=== PATIENT | female | born 1990 | race Caucasian/White ===

== ENCOUNTER 2016-12-15 11:11 | Inpatient (IN) | payer OTHER ==
[~2016-12-15] VITALS: Ht 167.6 cm; Wt 49.9 kg
--- NOTE | 2016-12-15 12:45 | NUR ---
Pre-admission: Patient is seen at the intake office at this time. Alert and oriented x 4. Verbally responsive. Appears disheveled and anxious. VS 98.1, Pulse 86, RR 20, O2 sat at RA 97%, BP 119/78, PL 0/10. Patient presented with tremors, complains of nausea, anxiety and noted with facial flushing. CIWA 17. States that she is here to detox from ETOH. Denies any seizure history and denies any allergies. No signs of ETOH intoxication noted. Per patient, she came from [facility] ER from an overnight stay due to ETOH poisoning. Will continue with the admission process in the unit.
[2016-12-15] MEDS ORDERED: TRAZ-147 PO (12:50)
[2016-12-15] MEDS ORDERED: CLIN-63 PO (12:51)
[2016-12-15 13:00] VITALS: BP 119/78
--- NOTE | 2016-12-15 13:00 | NUR ---
Admission Note: The patient is a 26 year old female who returns to [facility] for medically supervised withdrawal from alcohol. She is alert and oriented x 4. No changes in LOC noted. Denies S/I or H/I noted. Respirations even and unlabored. No SOB noted. Skin warm and dry to touch. Skin check done and noted with a bruiser on her right cheek and a skin abrasion measuring 1cm x 1 cm sustained from a fall due to ETOH intoxication. Abdomen soft and non-distended with BS (+) in all 4 quadrants. No complains of diarrhea or constipation noted. LBM was today. Patient does not recall when her LMP, since she reports having an IUD inserted. Able to provide urine for UDS and test. Ambulatory ad khadijah with steady gait. Voids independently The patient states that she was recently hospitalized at [facility] from 12/14/2016 to 12/15/2016 for acute alcohol poisoning. The patient reports relapsing a week ago and would drink 1L of Vodka daily for 7 days. The patient reports first drinking alcohol at age 13, but does not identify abusing alcohol on a consistent basis until age 17. She denies any history of withdrawal seizures. Her longest period of sobriety was 1.5 years that ended in September 2014. At the time of assessment, patient appears anxious, restless, complains of nausea with no vomiting and tremors to bilateral hands. She reports having a PCP named Dr. Rodríguez, and with a family history of alcoholism and cocaine abuse. Educated patient on the unit's protocol and policies. Patient verbalized understanding. Will continue to monitor closely.
[2016-12-15] MEDS ORDERED: MAGNESIUM HYDROXIDE 30 ML LIQUID UDC PO PRN (13:15)
[2016-12-15] MEDS ORDERED: DICYCLOMINE HCL 20 MG TABLET PO PRN (13:15)
[2016-12-15] MEDS ORDERED: ACETAMINOPHEN 325 MG TABLET PO PRN (13:15)
[2016-12-15] MEDS ORDERED: diphenhydrAMINE 50 MG CAPSULE PO PRN (13:15)
[2016-12-15] MEDS ORDERED: MAG HYDROX/AL HYDROX/SIMETH 30 ML LIQUID UDC PO PRN (13:15)
[2016-12-15] MEDS ORDERED: ONDANSETRON 4 MG/2 ML VIAL IM PRN (13:15)
[2016-12-15] MEDS ORDERED: MIRALAX 17 GM POWD.PACK PO PRN (13:15)
[2016-12-15] MEDS ORDERED: LORAZEPAM 2 MG/1 ML VIAL IM PRN (13:15)
[2016-12-15] MEDS ORDERED: THIAMINE HCL 200 MG/2 ML VIAL IM ONE (13:15)
[2016-12-15] MEDS ORDERED: LOPERAMIDE HCL 2 MG CAPSULE PO PRN ×2 (13:15)
[2016-12-15] MEDS ORDERED: LORAZEPAM 1 MG TABLET PO PRN ×2 (13:15)
[2016-12-15 13:40] LABS: *AMPHETAMINE, URINE NEGATIVE (NEGATIVE); *BARBITURATE, URINE NEGATIVE (NEGATIVE); *CANNABINOID, URINE NEGATIVE (NEGATIVE); *COCCAINE, URINE NEGATIVE (NEGATIVE); *OPIATE, URINE NEGATIVE (NEGATIVE); *PHENCYCLIDINE SCREEN,URINE NEGATIVE (NEGATIVE)
[2016-12-15 13:54] LABS: *URINE HCG, QUAL NEGATIVE (NEGATIVE)
[2016-12-15] MEDS: LORAZEPAM 1 MG TABLET PO SCH ×3 (14:06→20:50)
[2016-12-15] MEDS: ONDANSETRON ODT 4 MG TAB.RAPDIS SL PRN ×2 (14:06→20:50)
[2016-12-15] MEDS: CLONIDINE HCL 0.1 MG TABLET PO PRN (14:06)
--- NOTE | 2016-12-15 14:06 | NUR ---
Zofran 4mg ODT and Clonidine 0.1mg PO given: Patient noted with CIWA 17, intermittent nausea noted with gross tremors, facial flushing, anxiety, agitation and sweats. Initial dose of Ativan taper started at this time. Clonidine 0.1mg PO given and Zofran 4 mg ODT given as ordered. Will monitor for effectiveness. Results of urine results are negative.
--- NOTE | 2016-12-15 14:10 | NUR ---
Vitamin B1 IM not administered: Patient refused Thiamine injection. Education provided but still refused. Will continue to monitor closely.
[2016-12-15 15:03] LABS: BASOPHILS # (AUTO) 0.1 K/uL (0.0-8.0); BASOPHILS % (AUTO) 0.6 % (0.0-2.0); EOSINOPHILS % (AUTO) 0.4 % (0.0-7.0); HEMATOCRIT 34.7 % (37-47); HEMOGLOBIN 11.9 G/DL (12.0-16.0); LYMPHOCYTES # (AUTO) 1.4 K/UL (0.8-4.8); LYMPHOCYTES % (AUTO) 16.3 % (20.5-51.5); MEAN CORPUSCULAR HEMOGLOBIN 30.1 UUG (27.0-31.0); MEAN CORPUSCULAR HGB CONC 34 g/dL (32.0-37.0); MEAN CORPUSCULAR VOLUME 87.7 FL (81.0-99.0); MONOCYTES # (AUTO) 0.6 K/UL (0.1-1.30); MONOCYTES % (AUTO) 6.7 % (0.0-11.0); NEUTROPHILS # (AUTO) 6.3 K/UL (1.8-8.9); PLATELET COUNT (AUTO) 349 K/UL (150-450); RED BLOOD CELL COUNT(AUTO) 3.96 MIL/UL (4.2-5.4); WHITE BLOOD COUNT (AUTO) 8.4 K/UL (4.0-11.2)
--- NOTE | 2016-12-15 15:06 | NUR ---
Re-assessment: Per patient, PRN Zofran was effective in reducing nausea.
[2016-12-15 15:35] LABS: BILIRUBIN,TOTAL 0.9 mg/dL (0.2-1.0); CREATININE 0.6 mg/dL (0.6-1.3); MAGNESIUM 1.5 mg/dL (1.8-2.4); POTASSIUM 4.2 mmol/L (3.5-5.1); TOTAL PROTEIN, SERUM 6.7 g/dL (6.4-8.2)
[2016-12-15 16:00] VITALS: BP 108/66
[2016-12-15] MEDS ORDERED: MAGNESIUM OXIDE 400 MG TABLET PO ONE (16:00)
--- NOTE | 2016-12-15 16:00 | NUR ---
Communication: Notified MD Paniagua that patient's Mag level is 1.7L. New orders were entered. Orders noted and carried out. Addendum: 12/15/16 at 1604 by BRITTON OCHOA LVN Correction: Mag level 1.5L.
[2016-12-15 16:18] LABS: THYROID STIMULATING HORMONE 1.668 mIU/mL (0.358-3.740)
--- NOTE | 2016-12-15 18:42 | NUR ---
End of Shift Notes: Patient Is a 26 year old female admitted for ETOH dependence who was placed on a 5-day Ativan taper as ordered which was started today. Has past medical hx of insomnia, PTSD, depression, and alcoholic hepatitis. VS monitored closely. No significant abnormalities noted. Withdrawal symptoms were closely monitored. Initial CIWA upon admission 17 patient presented with anxiety, agitation, nausea, tremors, sweating and facial flushing. Last CIWA 8. Per patient, Ativan has been helping her with her withdrawal symptoms. Patient was medicated with Clonidine and Zofran 4 mg ODT at 1406 with help after 1 hour. Mag 1.5L replaced with 800mg of Mag Oxide as ordered. Patient was unable to participate in group and social activities due to her withdrawal symptoms. Appetite fair. All needs met and attended. Dinner 0%, intake 500cc, void x 2, no BM. Will continue to monitor closely.
--- NOTE | 2016-12-15 19:15 | NUR ---
Start of Shift Note: Patient is a 26 y/o female admitted today 12/15/16 for ETOH dependence. Patient reported drinking 1 liter of Vodka daily for 1 week. Patient has PTSD, Hx of Alcoholic hepatitis, Mood disorder and Insomnia. Patient is on a regular diet with no known food and drug allergies. Full Code status. Fall and Seizure precaution. Patient has bruise on her right cheek. No open skin noted. Magnesium 1.5 was replaced with Mag Ox 800mg during day shift. Patient started today on a modified 5-day Ativan taper. Last CIWA 8. PRN Clonidine and Zofran given. Patient is alert & oriented to name, place and situation. No shortness of breath noted. Respiration even & unlabored. Abdomen soft & non-distended. Nausea with no episode of vomiting noted. Slight sweating noted. No complains of pain/discomfort. Patient denies hallucination. Safety precautions are in place. Bed locked in lowest position. Both side rails up. Call light within pts reach. Will continue to monitor patient.
[2016-12-15 20:00] VITALS: BP 123/75
--- NOTE | 2016-12-15 20:50 | NUR ---
PRN Zofran Patient complains of nausea. No episode of vomiting noted during my shift. PRN Zofran 4mg SL administered as ordered. Will reassess in 1 hour. Will continue to monitor patient.
--- NOTE | 2016-12-15 21:50 | NUR ---
PRN Reassessment Patient verbalized improved nausea. Will continue to monitor patient.
[2016-12-16] VITALS: BP 119/79
[2016-12-16 04:00] VITALS: BP 110/69
--- NOTE | 2016-12-16 07:17 | NUR ---
End of Shift Note: Endorse pt to day shift nurse. Pt continues on his Ativan taper and tolerating well. Patient has been in his room most of my shift. Patient is compliant with medications, treatment and plan of care. Pt reported taper medications is effective in controlling her withdrawal symptoms. Last CIWA is 6. Pt was given PRN Zofran for nausea and was effective 1 hour post administration. Pt remained stable and vitals remains WNL. Pt slept for a total of 7 hours. Pt consumed 1000 ml of fluid. Encourage pt to increase fluid intake. Voided 3x with no bowel movement. All needs attended & met. Safety precautions are in place. Will continue to monitor patient.
--- NOTE | 2016-12-16 07:18 | NUR ---
Start of Shift Notes: Received patient in her room. Alert and oriented x 4. Able to make needs known. Respirations even and unlabored. No SOB noted. Skin warm and dry to touch. Abdomen soft and non-distended with (+) BS in all 4 quadrants. No complains of N/V/D or constipation noted. No complains of abdominal discomfort noted. Voids independently. Ambulatory ad khadijah with steady gait. Patient is a 26 year old female admitted for ETOH dependence who was placed on a 5-day Ativan taper as ordered. No adverse reactions noted. Has past medical hx of PTSD, insomnia and alcoholic hepatitis. Educated patient on her current plan of care for the day and her medication regimen. Encouraged oral fluid intake and encouraged group participation to learn new skills to prevent relapse. Will continue to monitor closely.
[2016-12-16 08:00] VITALS: BP 101/60
[2016-12-16 08:11] LABS: HEPATITIS B SURFACE AG Negative (Negative)
[2016-12-16] MEDS: TUBERCULIN,PURIF.PROT.DERIV. 5 TU/0.1 ML TEST ID ONE ×2 (08:32→09:01)
[2016-12-16] MEDS: LORAZEPAM 1 MG TABLET PO SCH ×3 (08:32→20:48)
[2016-12-16] MEDS: MULTIVITAMINS,THERAPEUTIC TABLET PO SCH (08:32)
[2016-12-16] MEDS: THIAMINE HCL 100 MG TABLET PO SCH (08:32)
[2016-12-16] MEDS: FOLIC ACID 1 MG TABLET PO SCH (08:32)
--- NOTE | 2016-12-16 09:02 | NUR ---
TB test not administered: Patient refused TB test despite education. Notified MD. GARCIA to do CXR. Orders noted and carried out.
[2016-12-16 12:00] VITALS: BP 115/72
[2016-12-16] MEDS: CLONIDINE HCL 0.1 MG TABLET PO PRN (14:02)
--- NOTE | 2016-12-16 14:03 | NUR ---
Clonidine 0.1mg PO and Bentyl 20 mg PO given: Patient complained of abdominal spasms and chills, sweats, anxiety and agitation. Unable to be redirected with non-pharmacological intervention. Medicated patient with Bentyl 20 mg PO and Clonidine 0.1mg PO as ordered. Will monitor for effectiveness.
--- NOTE | 2016-12-16 15:03 | NUR ---
Re-assessment: Per patient PRN Clonidine and Bentyl were effective in reducing patient's anxiety, agitation, sweats and abdominal spasms.
[2016-12-16 16:00] VITALS: BP 95/60
--- NOTE | 2016-12-16 18:49 | NUR ---
End of Shift Notes: Patient Is a 26 year old female admitted for ETOH dependence who was placed on a 5-day Ativan taper as ordered which was started today. Has past medical hx of insomnia, PTSD, depression, and alcoholic hepatitis. VS monitored closely. No significant abnormalities noted. Withdrawal symptoms were closely monitored. Initial CIWA 6, patient presented with anxiety, agitation, tremors, sweating and facial flushing. Last CIWA 4. Per patient, Ativan has been helping her with her withdrawal symptoms. Patient was unable to participate in group and social activities due to her withdrawal symptoms. Appetite fair. All needs met and attended. Will continue to monitor closely.
--- NOTE | 2016-12-16 19:15 | NUR ---
Start of Shift Note: Patient is a 26 y/o female admitted today 12/15/16 for ETOH dependence. Patient reported drinking 1 liter of Vodka daily for 1 week. Patient has PTSD, Hx of Alcoholic hepatitis, Mood disorder and Insomnia. Patient is on a regular diet with no known food and drug allergies. Full Code status. Fall and Seizure precaution. Patient has bruise on her right cheek. No open skin noted. Patient is on a modified 5-day Ativan taper and tolerating well. Last CIWA 4. PRN Clonidine and Bentyl given during day shift. Patient is alert & oriented to name, place and situation. No shortness of breath noted. Respiration even & unlabored. Abdomen soft & non-distended. Nausea with no episode of vomiting noted. Slight sweating noted. Pt complains of mild headache. Patient denies hallucination. Safety precautions are in place. Bed locked in lowest position. Both side rails up. Call light within pt's reach. Will continue to monitor patient.
[2016-12-16 20:00] VITALS: BP 111/68
[2016-12-16] MEDS: ONDANSETRON ODT 4 MG TAB.RAPDIS SL PRN (20:48)
[2016-12-16] MEDS: IBUPROFEN 400 MG TABLET PO PRN (20:48)
--- NOTE | 2016-12-16 20:48 | NUR ---
PRN Motrin & Zofran Patient complains of mild headache and nausea. No episode of vomiting noted. PRN Motrin & Zofran administered as ordered. Will reassess in 1 hour. Will continue to monitor patient.
--- NOTE | 2016-12-16 21:48 | NUR ---
PRN Reassessment Patient verbalized relief from headache and improved nausea. Safety measures in place. Will continue to monitor patient.
[2016-12-16] MEDS: TRAZODONE 50 MG TABLET PO PRN (22:40)
--- NOTE | 2016-12-16 22:40 | NUR ---
PRN Trazodone Patient complains of inability to fall asleep. Pt requested medication for sleep. PRN Trazodone administered as ordered. Will continue to monitor patient.
--- NOTE | 2016-12-16 23:40 | NUR ---
PRN Reassessment Patient asleep in bed and appears comfortable. No shortness of breath noted. Respiration even & unlabored. Safety measures in place. Will continue to monitor patient.
[2016-12-17] VITALS: BP 105/75
[2016-12-17 04:00] VITALS: BP 97/49
--- NOTE | 2016-12-17 06:59 | NUR ---
End of Shift Note: Endorse pt to day shift nurse. Pt continues on his Ativan taper and tolerating well. Patient has been in his room most of my shift. Patient is compliant with medications, treatment and plan of care. Pt reported taper medications is effective in controlling her withdrawal symptoms. Last CIWA is 6. Pt was given PRN Zofran, Motrin and Trazodone during my shift and were effective 1 hour post administration. Pt remained stable and vitals remains WNL. Pt slept for a total of 8 hours. Pt consumed 1500 ml of fluid. Encourage pt to increase fluid intake. Voided 1x with no bowel movement. All needs attended & met. Safety precautions are in place. Will continue to monitor patient.
--- NOTE | 2016-12-17 07:00 | NUR ---
Start of Shift Notes: Received patient in her room. Alert and oriented x 4. Able to make needs known. Respirations even and unlabored. No SOB noted. Skin warm and dry to touch. Abdomen soft and non-distended with (+) BS in all 4 quadrants. No complains of N/V/D or constipation noted. No complains of abdominal discomfort noted. Voids independently. Ambulatory ad khadijah with steady gait. Patient is a 26 year old female admitted for ETOH dependence who was placed on a 5-day Ativan taper as ordered. No adverse reactions noted. Has past medical hx of PTSD, insomnia and alcoholic hepatitis. PRN Motrin, Trazodone and Zofran were given during the night. Last CIWA 6. Slept for 8 hours. Educated patient on her current plan of care for the day and her medication regimen. Encouraged oral fluid intake and encouraged group participation to learn new skills to prevent relapse. Will continue to monitor closely.
[2016-12-17 08:00] VITALS: BP 104/68
[2016-12-17] MEDS: LORAZEPAM 1 MG TABLET PO SCH ×4 (08:18→20:51)
[2016-12-17] MEDS: MULTIVITAMINS,THERAPEUTIC TABLET PO SCH (08:18)
[2016-12-17] MEDS: THIAMINE HCL 100 MG TABLET PO SCH (08:18)
[2016-12-17] MEDS: FOLIC ACID 1 MG TABLET PO SCH (08:18)
[2016-12-17 12:00] VITALS: BP 99/46
--- NOTE | 2016-12-17 12:32 | NUR ---
MD Communication: Patient noted with skin tight non-pitting edema to right arm. Patient states it is from IV site from previous hospitalization. Skin is intact to right arm. No skin breakdown noted. Able to move aROM. Lungs clear upon auscultation. Notified MD with orders to administer Lasix 20 mg PO x 1. Orders noted and carried out. patient education was informed.
[2016-12-17] MEDS ORDERED: FUROSEMIDE 20 MG TABLET PO ONE (13:00)
[2016-12-17 16:00] VITALS: BP 94/51
--- NOTE | 2016-12-17 18:53 | NUR ---
End of Shift Notes: Patient Is a 26 year old female admitted for ETOH dependence who was placed on a 5-day Ativan taper as ordered which was started today. Has past medical hx of insomnia, PTSD, depression, and alcoholic hepatitis. VS monitored closely. No significant abnormalities noted. Withdrawal symptoms were closely monitored. Initial CIWA 4, patient presented with anxiety, agitation and sweats. Last CIWA 2. Per patient, Ativan has been helping her with her withdrawal symptoms. Requires encouragement to participate in group and activities. Becomes emotional during the day. Support and redirection provided. . Appetite fair. All needs met and attended. Will continue to monitor closely.
--- NOTE | 2016-12-17 19:15 | NUR ---
Start of Shift Note: Patient is a 26 y/o female admitted today 12/15/16 for ETOH dependence. Patient reported drinking 1 liter of Vodka daily for 1 week. Patient has PTSD, Hx of Alcoholic hepatitis, Mood disorder and Insomnia. Patient is on a regular diet with no known food and drug allergies. Full Code status. Fall and Seizure precaution. Patient has bruise on her right cheek. No open skin noted. Patient is on a modified 5-day Ativan taper and tolerating well. Last CIWA 2. Pt was given a one time dose of Lasix per MD order during day shift. No PRN medications given. Patient is alert & oriented to name, place and situation. No shortness of breath noted. Respiration even & unlabored. Abdomen soft & non-distended. No nausea noted. Slight sweating and anxiety noted. Pt complains of mild headache. Patient denies hallucination. Safety precautions are in place. Bed locked in lowest position. Both side rails up. Call light within pt's reach. Will continue to monitor patient.
[2016-12-17 20:00] VITALS: BP 101/62
[2016-12-17] MEDS: IBUPROFEN 400 MG TABLET PO PRN (20:51)
--- NOTE | 2016-12-17 20:51 | NUR ---
PRN Motrin Patient complains of mild headache. Restlessness noted. PRN Motrin administered as ordered. Will reassess in 1 hour. Will continue to monitor patient.
[2016-12-17] MEDS: TRAZODONE 50 MG TABLET PO PRN (22:19)
--- NOTE | 2016-12-17 22:19 | NUR ---
PRN Tylenol, Vistaril & Trazodone Patient still complains of mild headache and anxiety. Patient also requesting for medication to help her sleep. PRN Tylenol, Vistaril & Trazodone administered as ordered. Safety measures in place. Will reassess in 1 hour. Will continue to monitor patient.
[2016-12-17] MEDS: HYDROXYZINE PAMOATE 25 MG CAPSULE PO PRN (22:22)
--- NOTE | 2016-12-17 23:19 | NUR ---
PRN Reassessment Pt asleep in bed at this time with no facial grimacing noted. Patient appears comfortable in bed with eyes close. Safety measures in place. Will continue to monitor patient.
[2016-12-18] VITALS: BP 115/76
[2016-12-18 04:00] VITALS: BP 91/52
--- NOTE | 2016-12-18 07:18 | NUR ---
End of Shift Note: Endorse pt to day shift nurse. Pt continues on his Ativan taper and tolerating well. Patient has been in his room most of my shift. Patient is compliant with medications, treatment and plan of care. Pt reported taper medications is effective in controlling her withdrawal symptoms. Last CIWA is 4. Pt was given PRN Trazodone, Vistaril & Tylenol during my shift and were effective 1 hour post administration. Pt remained stable and vitals remains WNL. Pt slept for a total of 7 hours. Pt consumed 729 ml of fluid. Encourage pt to increase fluid intake. Voided 2x with no bowel movement. All needs attended & met. Safety precautions are in place. Will continue to monitor patient.
--- NOTE | 2016-12-18 07:39 | NUR ---
BEGINNING OF SHIFT Patient endorsement report received from overnight cashier nurse, all pertinent information discussed. Patient is a 26 year old female admitted on 12/15/2016, with admitting Dx: ETOH dependence. Patient with ongoing 5 day Modified Ativan Taper as ordered, and is scheduled to begin day 4 of taper. Patient with last ciwa score of: 4, as per overnight cashier. Patient received PRN: Motrin, Trazodone, Tylenol, and Vistaril, during overnight cashier, medications were effective, patient slept for 5 hours. Patient received in room, awake alert and oriented x4, educated regarding plan of care and medication regimen for the day with good verbal understanding. Safety measures in place. call light kept with in reach, will continue to monitor closely.
[2016-12-18 08:19] VITALS: BP 90/60
[2016-12-18 08:26] LABS: CREATININE 0.8 mg/dL (0.6-1.3); PHOSPHOROUS 4.3 mg/dL (2.5-4.9); POTASSIUM 3.5 mmol/L (3.5-5.1)
[2016-12-18] MEDS: FOLIC ACID 1 MG TABLET PO SCH (09:00)
[2016-12-18] MEDS: THIAMINE HCL 100 MG TABLET PO SCH (09:00)
[2016-12-18] MEDS: MULTIVITAMINS,THERAPEUTIC TABLET PO SCH (09:00)
[2016-12-18] MEDS: LORAZEPAM 1 MG TABLET PO SCH ×3 (09:00→20:42)
[2016-12-18 14:12] VITALS: BP 98/62
[2016-12-18] MEDS: GABAPENTIN 300 MG CAPSULE PO SCH ×2 (14:38→20:42)
[2016-12-18 17:33] VITALS: BP 102/69
--- NOTE | 2016-12-18 18:56 | NUR ---
END OF SHIFT Patient alert and oriented x4, vital signs were stable during shift. patient compliant with therapeutic plan of care. 0900 assessment patient presented with: tremors that can be felt but not seen, barely sweating, mild anxiety, mild agitation, and mild head fullness with ciwa score of: 6. 1300 assessment patient presented with: tremors that can be felt but not seen, barely sweating, mild anxiety/agitation and mild head fullness with ciwa score of : 6. 1700 assessment patient presented with: tremors that can be felt but not seen, mild anxiety, mild agitation and mild head fullness with ciwa score of: 5. Patient received no PRN medications during shift. Patient encouraged to attend group therapies/sessions to learn new coping skills to prevent relapse. patient denies any SI/HI. safety measures in place. call light kept with in reach. patient endorsed to assembler 1st shift nurse, all pertinent information discussed. will continue to monitor closely.
--- NOTE | 2016-12-18 19:10 | NUR ---
Start of Shift Patient Received. Patient is in her room, awake, alert and verbally responsive. Patient is a 26 year old female, admitted on 12/15/16 under the care of Dr. Thomas. Patient is currently receiving a Modified Ativan Taper. Patient verbalizes no known allergies, wishes to be full code, following a regular diet, placed on fall and seizure precaution, skin noted with abrasion to Right Shoulder and Bruise to Right Cheek. Past medical History of PTSD, History of alcoholic hepatitis, mood disorder, and insomnia. Per endorsement, patient noted with a CIWA of 5. NO PRN Medications administered. All needs attended to promptly. Will continue plan of care as ordered.
[2016-12-18 20:34] VITALS: BP 130/76
[2016-12-18] MEDS: IBUPROFEN 400 MG TABLET PO PRN (20:42)
--- NOTE | 2016-12-18 20:45 | NUR ---
PRN Medication Administration Patient verbalizing pain of 5/10 due to a headache. All non-pharmacological interventions noted not effective. PRN Motrin administered with routine medications. Will continue to monitor .
--- NOTE | 2016-12-18 22:00 | NUR ---
PRN Medication Reassessment Patient is able to verbalize "the medication helped take the edge off the headache." PRN Motrin noted to be effective.
[2016-12-18] MEDS: TRAZODONE 50 MG TABLET PO PRN (22:21)
--- NOTE | 2016-12-18 22:30 | NUR ---
PRN Medication Administration Patient is verbalizing inability of falling asleep. All non pharmacological interventions noted not effective. PRN Trazodone given as ordered. Will continue to monitor for effectiveness.
[2016-12-19 00:35] VITALS: BP 121/70
[2016-12-19 04:15] VITALS: BP 126/79
[2016-12-19] MEDS: HYDROXYZINE PAMOATE 25 MG CAPSULE PO PRN (04:52)
--- NOTE | 2016-12-19 04:52 | NUR ---
Vistaril PRN: Pt c/o anxiety due inability to fall asleep. Pt requested medicine that would help her relax. Vistaril PRN given for anxiety as ordered. Will continue to monitor.
--- NOTE | 2016-12-19 07:05 | NUR ---
End of Shift Patient is in bed sleeping. Breathing even and non labored. No signs of pain or discomfort noted. Patient is a 26 year old female, admitted on 12/15/16 under the care of Dr. Thomas. Patient is currently receiving a Modified Ativan Taper. Patient verbalizes no known allergies, wishes to be full code, following a regular diet, placed on fall and seizure precaution, skin noted with abrasion to Right Shoulder and Bruise to Right Cheek. Past medical History of PTSD, History of alcoholic hepatitis, mood disorder, and insomnia. Patient received PRN Motrin, Trazodone, and Vistaril. PRN Trazodone not effective. All needs attended to promptly. Will continue plan of care as ordered.
--- NOTE | 2016-12-19 07:39 | NUR ---
BEGINNING OF SHIFT Patient endorsement report received from power and recovery shift engineer nurse, all pertinent information discussed. Patient is a 26 year old female admitted on 12/15/2016, with admitting Dx: ETOH dependence. Patient with ongoing 5 day Modified Ativan Taper as ordered, and is scheduled to begin day 5 of taper. Patient with last ciwa score of: 3, as per power and recovery shift engineer. Patient received PRN: Motrin, Trazodone, and Vistaril, during power and recovery shift engineer, medications were effective, patient slept for 5 hours. Patient received in room, with eyes closed, respiration even and unlabored, responsive to verbal stimuli. Will educated regarding plan of care and medication regimen for the day with good verbal understanding. Safety measures in place. call light kept with in reach, will continue to monitor closely.
[2016-12-19 08:19] VITALS: BP 102/60
[2016-12-19] MEDS: GABAPENTIN 300 MG CAPSULE PO SCH ×3 (08:39→20:38)
[2016-12-19] MEDS: LORAZEPAM 1 MG TABLET PO SCH ×2 (08:39→20:34)
[2016-12-19] MEDS: THIAMINE HCL 100 MG TABLET PO SCH (08:39)
[2016-12-19] MEDS: FOLIC ACID 1 MG TABLET PO SCH (08:39)
[2016-12-19] MEDS: MULTIVITAMINS,THERAPEUTIC TABLET PO SCH (08:39)
[2016-12-19] MEDS: ASPIRIN/ACETAMINOPHEN/CAFFEINE TABLET PO PRN (12:02)
--- NOTE | 2016-12-19 12:02 | NUR ---
PRN EXCEDRIN Patient c/o migraine 01/17, provided with non pharmacological interventions with no relief, administered Excedrin as ordered, will monitor effectiveness of medication.
[2016-12-19] MEDS ORDERED: TRAZODONE 50 MG TABLET PO PRN (13:00)
--- NOTE | 2016-12-19 13:02 | NUR ---
EXCEDRIN REASSESSMENT Patient reports medication with relief, current pain level 0/10, encouraged adequate PO fluid intake as tolerated.
[2016-12-19 13:34] VITALS: BP 107/69
[2016-12-19 17:43] VITALS: BP 118/77
--- NOTE | 2016-12-19 19:10 | NUR ---
Start of Shift Patient Received. Patient is in her room, awake, alert and verbally responsive. Patient is a 26 year old female, admitted on 12/15/16 under the care of Dr. Thomas. Patient is currently receiving a Modified Ativan Taper. Patient verbalizes no known allergies, wishes to be full code, following a regular diet, placed on fall and seizure precaution, skin noted with abrasion to Right Shoulder and Bruise to Right Cheek. Past medical History of PTSD, History of alcoholic hepatitis, mood disorder, and insomnia. Per endorsement, noted with new orders for Excedrin and given one dose for complaints of headache. Patient noted to Refuse Neurontin during 1500 dose. Patient also noted with new order for Trazodone 100mg. All needs attended to promptly. Will continue plan of care as ordered.
--- NOTE | 2016-12-19 19:11 | NUR ---
END OF SHIFT Patient alert and oriented x4, vital signs were stable during shift. patient compliant with therapeutic plan of care. 0900 Assessment patient presented with: tremors that can be felt but not seen, anxiety, and mild agitation and mild head fullness with ciwa score of: 7; 1300 assessment patient presented with: tremors that can be felt but not seen, mild anxiety, mild agitation and mild head fullness with ciwa score of: 5; 1700 assessment patient presented with: mild anxiety/mild agitation with ciwa score of: 2, detox medication effective at decreasing s/sx of withdrawal. Patient received PRN: Excedrin during shift, medication effective one hour post administration. During shift patient refused 1500 dose of NeuronMD fredi aware. Patient encouraged to attend group therapies/sessions to learn new coping skills to prevent relapse. patient denies any SI/HI. safety measures in place. call light kept with in reach. patient endorsed to aerial hurricane hunter nurse, all pertinent information discussed. will continue to monitor closely.
[2016-12-19 20:25] VITALS: BP 101/71
--- NOTE | 2016-12-19 22:00 | NUR ---
PRN Medication Administration Patient is verbalizing inability of falling asleep. All non pharmacological interventions noted not effective. PRN Trazodone administered as per orders. All needs attended to promptly. Will continue to monitor.
[2016-12-20] VITALS (7 sets, daily range): BP systolic 90–108; BP diastolic 53–81
--- NOTE | 2016-12-20 01:00 | NUR ---
PRN Medication Reassessment Patient noted in bed sleeping. Breathing even and non labored. Patient was given PRN Trazodone for inability of falling asleep. Medication noted to be effective as evidence of patient resting comfortably with no facial grimacing. Patient Respirations noted to be 14. all needs attended to promptly. Will continue plan of care as ordered.
[2016-12-20] MEDS: CLONIDINE HCL 0.1 MG TABLET PO PRN (03:26)
--- NOTE | 2016-12-20 03:27 | NUR ---
PRN Medication Administration Patient noted awake and verbalizing increased anxiety and agitation due to patient inability of going back to sleep. PRN clonidine administered as per order. Will continue to monitor.
--- NOTE | 2016-12-20 05:00 | NUR ---
PRN Medication Reassessment Patient noted in bed sleeping. Breathing even and non labored. Patient was given PRN Clonidine for increased anxiety. Medication noted to be effective as evidence of patient resting comfortably with no facial grimacing. Patient Respirations noted to be 14. all needs attended to promptly. Will continue plan of care as ordered.
--- NOTE | 2016-12-20 07:07 | NUR ---
End of Shift Patient is in bed sleeping. Breathing even and non labored. No signs of pain or discomfort noted. Patient is a 26 year old female, admitted on 12/15/16 under the care of Dr. Thomas. Patient is currently receiving a Modified Ativan Taper. Patient verbalizes no known allergies, wishes to be full code, following a regular diet, placed on fall and seizure precaution, skin noted with abrasion to Right Shoulder and Bruise to Right Cheek. Past medical History of PTSD, History of alcoholic hepatitis, mood disorder, and insomnia. Patient received PRN Trazodone and Clonidine with both medications noted to be effective. All needs attended to promptly. Will continue plan of care as ordered.
--- NOTE | 2016-12-20 07:53 | NUR ---
START OF SHIFT Received patient in bed AOx4. Patient states she feels tired and she couldn't sleep last night. She presents fatigued. Patient on modified 5 day Ativan taper. PRN Trazodone and Clonidine given per night nurse. Patient slept 5 hours. CIWA 0 per night nurse. Encouraged patient to increase fluid intake. Encouraged patient to notify RN if S/S of W/D worsen. Encouraged attendance of groups and activities. Will provide safe and supportive environment. Will monitor.
[2016-12-20] MEDS: GABAPENTIN 300 MG CAPSULE PO SCH ×3 (09:00→21:12)
[2016-12-20] MEDS: THIAMINE HCL 100 MG TABLET PO SCH (09:35)
[2016-12-20] MEDS: ASPIRIN/ACETAMINOPHEN/CAFFEINE TABLET PO PRN (09:35)
[2016-12-20] MEDS: MULTIVITAMINS,THERAPEUTIC TABLET PO SCH (09:35)
[2016-12-20] MEDS: FOLIC ACID 1 MG TABLET PO SCH (09:35)
--- NOTE | 2016-12-20 09:36 | NUR ---
MED REFUSAL patient refused 0900 Gabapentin. She states it makes her feel weird and she does not like taking it. Educated pt on risks and benefits. will monitor
--- NOTE | 2016-12-20 09:37 | NUR ---
PRN MEDICATION PRN Excedrin given for headache 3/10 on pain scale. Will reassess
--- NOTE | 2016-12-20 10:10 | NUR ---
PRN REASSESSMENT Patient reports pain 0/10 on pain scale. Will monitor
[2016-12-20] MEDS ORDERED: TRAZODONE 50 MG TABLET PO PRN (10:45)
--- NOTE | 2016-12-20 18:36 | NUR ---
END OF SHIFT NOTE Patient scheduled for discharge tomorrow. Tapers complete. Vital signs stable. Patient attended groups and activities and walked around unit. PRN Excedrin given for headache with effectiveness. Last CIWA 1. Patient reports mild anxiety during shift. Patient verbalizes readiness for discharge. All needs have been met. Safety measures in place. WIll endorse to maintenance technician 3rd shift.
[2016-12-20] MEDS ORDERED: GABA-534 PO (19:05)
[2016-12-20] MEDS ORDERED: Aspirin/Acetaminophen/Caffeine PO (19:05)
[2016-12-20] MEDS ORDERED: CLON0.1T14 PO (19:05)
[2016-12-20] MEDS ORDERED: TRAZ-144 PO (19:05)
[2016-12-20] MEDS ORDERED: HYDR-3895 PO (19:05)
--- NOTE | 2016-12-20 19:05 | NUR ---
Start of Shift Patient Received. Patient is in her room, awake, alert and verbally responsive. Patient is a 26 year old female, admitted on 12/15/16 under the care of Dr. Thomas. Patient is currently receiving a Modified Ativan Taper. Patient verbalizes no known allergies, wishes to be full code, following a regular diet, placed on fall and seizure precaution, skin noted with abrasion to Right Shoulder and Bruise to Right Cheek. Past medical History of PTSD, History of alcoholic hepatitis, mood disorder, and insomnia. Per endorsement, patient is set for discharge tomorrow 12/21/16. NO PRN Medications administered. Last noted CIWA noted as 1. All needs attended to promptly. Will continue plan of care as ordered.
[2016-12-20 20:58] LABS: *AMPHETAMINE, URINE NEGATIVE (NEGATIVE); *BARBITURATE, URINE NEGATIVE (NEGATIVE); *CANNABINOID, URINE NEGATIVE (NEGATIVE); *COCCAINE, URINE NEGATIVE (NEGATIVE); *OPIATE, URINE NEGATIVE (NEGATIVE); *PHENCYCLIDINE SCREEN,URINE NEGATIVE (NEGATIVE)
--- NOTE | 2016-12-20 21:12 | NUR ---
PRN Medication Administration patient is verbalizing increased feelings of constipation. PRN MOM administered. Will continue to monitor.
--- NOTE | 2016-12-20 22:45 | NUR ---
PRN Medication Administration patient is verbalizing inability of falling asleep. All non pharmacological interventions noted not effective. PRN Trazodone administered. Will continue to monitor.
--- NOTE | 2016-12-20 23:45 | NUR ---
PRN Medication Reassessment Patient is in bed sleeping. Breathing even and non labored. Patient was given PRN Trazodone for inability of falling asleep. PRN Medication noted effective. Patient continues to rest well with no intruptions noted. Patient respirations noted 14. Will continue to monitor.
[2016-12-21 00:25] VITALS: BP 95/56
[2016-12-21 04:00] VITALS: BP 105/64
--- NOTE | 2016-12-21 07:02 | NUR ---
End of Shift Patient is in bed sleeping. Breathing even and non labored. No signs of pain or discomfort noted. Patient is a 26 year old female, admitted on 12/15/16 under the care of Dr. Thomas. Patient is currently receiving a Modified Ativan Taper. Patient verbalizes no known allergies, full code, following a regular diet, placed on fall and seizure precaution, skin noted with abrasion to Right Shoulder and Bruise to Right Cheek. Past medical History of PTSD, History of alcoholic hepatitis, mood disorder, and insomnia. Patient received PRN Trazodone with medication noted to be effective. Patient slept a total of 6 hours. Patient was also given PRN MOM. Will endorse to morning shift for reassessment. Patient is set for discharge this morning 12/21/16. All needs attended to promptly. Will endorse to continue plan of care as ordered.
--- NOTE | 2016-12-21 07:25 | NUR ---
Start of shift note SBAR report rcv'd. Pt was admitted for ETOH dependence. Pt has a PMHx of PTSD, alcoholic hepatitis, mood disorder and insomnia. Pt has completed an ativan taper without any ASE.Pt states that she feels ready for discharge. Pt has no complaints at this time. Will continue to monitor pt. Pt is scheduled to discharge today.
[2016-12-21 08:00] VITALS: BP 106/77
[2016-12-21] MEDS: FOLIC ACID 1 MG TABLET PO SCH (08:28)
[2016-12-21] MEDS: THIAMINE HCL 100 MG TABLET PO SCH (08:28)
[2016-12-21] MEDS: GABAPENTIN 300 MG CAPSULE PO SCH (08:28)
[2016-12-21] MEDS: MULTIVITAMINS,THERAPEUTIC TABLET PO SCH (08:28)
--- NOTE | 2016-12-21 10:17 | NUR ---
Discharge note Pt was admitted for ETOH dependence. Pt has a CIWA of 1 d/t mild anxiety r/t discharge, denies any further s/s of withdrawal. Pt VS are WNL, pt has no further complaints, LBM 12/20/16. Pt denies SI/HI. Pt states that she feels ready for discharge. All needs addressed at this time. Discharge packet, prescriptions, medications and all belongings returned to pt. Pt ID band removed, pt ambulated off of unit with SK[employer] CLIPPER, left facility via private transport for home.
== END 2016-12-21 10:17 | disposition home or self-care (01) | DRG 895 ==
LOC: SRC 12:33
PROVIDERS: ADMIT Internal Medicine; ATTEND Internal Medicine
PROC: HZ2ZZZZ Detoxification Services for Substance Abuse Treatment (ICD-10-PCS; principal; 2016-12-15)
PROC: HZ51ZZZ Individual Psychotherapy for Substance Abuse Treatment, Behavioral (ICD-10-PCS; 2016-12-16)
DX: F10.230 Alcohol dependence with withdrawal, uncomplicated (principal); K70.10 Alcoholic hepatitis without ascites; Y90.9 Presence of alcohol in blood, level not specified; Z81.1 Family history of alcohol abuse and dependence; F43.10 Post-traumatic stress disorder, unspecified; F17.210 Nicotine dependence, cigarettes, uncomplicated; E86.0 Dehydration; Z91.89 Other specified personal risk factors, not elsewhere classified; G44.209 Tension-type headache, unspecified, not intractable; E88.09 Other disorders of plasma-protein metabolism, not elsewhere classified; E83.42 Hypomagnesemia; D64.9 Anemia, unspecified; F39 Unspecified mood [affective] disorder; G47.00 Insomnia, unspecified; F14.21 Cocaine dependence, in remission
CPT/HCPCS: 36415; 71010; 80307; 83690; 83735; 84100; 84443; 84703; 85025; 86580; 86592; 86705; 86803; 87340; 87806; A4663; G0480; Q0162

== ENCOUNTER 2017-01-09 21:25 | Inpatient (IN) | payer OTHER ==
[~2017-01-09] VITALS: Ht 167.6 cm; Wt 49.9 kg
[~2017-01-09 21:25] MED LIST: Aspirin/Acetaminophen/Caffeine PO; CLON0.1T14 PO; GABA-534 PO; HYDR-3895 PO; TRAZ-144 PO; TRAZ-147 PO
--- NOTE | 2017-01-09 23:45 | NUR ---
Pre-Assessment note: Pt seen in the intake office. Pt noted to be intoxicated and disheveled. Speech slurred but was cooperative. Pt initially refused to give consent for admission. Administration talked to pt and obtained consent to be admitted. Per pt hx, pt is being admitted for ETOH use. Pt did not bring any home medications. Explained unit protocols, rules and regulations. Pt pending arrival to [facility] unit on the third floor.
[2017-01-10] VITALS (7 sets, daily range): BP systolic 90–118; BP diastolic 54–79
--- NOTE | 2017-01-10 00:40 | NUR ---
Admission Patient is a 26 year old female who is readmitted to [facility] for medically supervised withdrawal from alcohol. She is alert and oriented to name and place. Patient was escorted on to the unit at 0002. Skin check rendered and noted to be intact. Patient was not able to provide urine drug screen upon admission and placed on Room Restriction and on 1:1 per unit protocol. Patient made aware and verbalized understanding. Vital signs rendered and noted as: 108/66, 75, 16, 98%, 98.0, 0/10 . Patients height noted at 56 and weight noted at 110lbs. Patient verbalized No known allergies, Following a Regular Diet, wishes to be full code. Speech is noted to be slurred. Patient is noted to be flat, intoxicated, and sleepy but cooperative with admission. Lung sounds clear with no cough noted. Bowel sounds present in all 4 quadrants. BUE and BLE noted WNL with no edema present. Patient is unable to recall LBM or LMP. Patient is ambulatory with steady gait noted. When asked what patient was drinking and how much, patient responded with the same thing as last time. ETOH-Vodka, since 12/22/16, 1 liter- 1000ml, PO, 01/09/17 drinking 1 liter Patient verbalizes her signs and symptoms of withdrawal as "Panic attacks, shakes, anxiety, and sweats. Patient reports past medical history of anxiety. No history of seizures noted. Patient denies suicidal ideations. This is patients 6th admission into [facility]. Patient reports of 1.5 years of sobriety back in 2015. All information relayed to MD with new orders for PRN medications for increased signs and symptoms of withdrawal. Labs to be drawn in the morning. CIWA noted to be 0 due to patients intoxication. All needs attended to promptly. Will continue plan of care as ordered. Addendum: 01/10/17 at 0506 by BEATRIZ FORMAN LVN Correction in amount drinking: Patient clarified of drinking half of a liter of vodka daily for the past 5 days.
[2017-01-10] MEDS ORDERED: ONDANSETRON 4 MG/2 ML VIAL IM PRN (02:45)
[2017-01-10] MEDS ORDERED: DICYCLOMINE HCL 20 MG TABLET PO PRN (02:45)
[2017-01-10] MEDS ORDERED: LORAZEPAM 1 MG TABLET PO PRN ×4 (02:45→19:15)
[2017-01-10] MEDS ORDERED: diphenhydrAMINE 50 MG CAPSULE PO PRN (02:45)
[2017-01-10] MEDS ORDERED: CLONIDINE HCL 0.1 MG TABLET PO PRN (02:45)
[2017-01-10] MEDS ORDERED: ACETAMINOPHEN 325 MG TABLET PO PRN (02:45)
[2017-01-10] MEDS ORDERED: MAGNESIUM HYDROXIDE 30 ML LIQUID UDC PO PRN (02:45)
[2017-01-10] MEDS ORDERED: LOPERAMIDE HCL 2 MG CAPSULE PO PRN ×2 (02:45)
[2017-01-10] MEDS ORDERED: MAG HYDROX/AL HYDROX/SIMETH 30 ML LIQUID UDC PO PRN (02:45)
[2017-01-10] MEDS ORDERED: LORAZEPAM 2 MG/1 ML VIAL IM PRN (02:45)
[2017-01-10] MEDS ORDERED: MIRALAX 17 GM POWD.PACK PO PRN (02:45)
[2017-01-10] MEDS ORDERED: IBUPROFEN 400 MG TABLET PO PRN (02:45)
[2017-01-10] MEDS ORDERED: ONDANSETRON ODT 4 MG TAB.RAPDIS SL PRN (02:45)
[2017-01-10 06:16] LABS: *URINE HCG, QUAL NEGATIVE (NEGATIVE)
[2017-01-10 06:28] LABS: *AMPHETAMINE, URINE NEGATIVE (NEGATIVE); *BARBITURATE, URINE NEGATIVE (NEGATIVE); *CANNABINOID, URINE NEGATIVE (NEGATIVE); *COCCAINE, URINE POSITIVE (NEGATIVE); *OPIATE, URINE NEGATIVE (NEGATIVE); *PHENCYCLIDINE SCREEN,URINE NEGATIVE (NEGATIVE)
--- NOTE | 2017-01-10 07:19 | NUR ---
End of Shift Patient is in bed sleeping. Breathing even and non labored. No signs of pain or discomfort noted. Patient is a 26 year old female, admitted 01/10/17 for ETOH Dependence under the care of Dr. Paniagua. PRN medications are available for increased signs of symptoms of withdrawal. Patient verbalizes no known allergies, full code, and regular diet, skin intact, placed on fall and seizure precautions. Past medical history of anxiety. Last noted CIWA is 0. No PRN medications administered. All needs attended to promptly. Will endorse to continue plan of care as ordered.
--- NOTE | 2017-01-10 07:44 | NUR ---
BEGINNING OF SHIFT Patient endorsement report received from shift production associate nurse, all pertinent information discussed. Patient is a 26 year old Female admitted on: 01/03/2017, with admitting Dx: Opiate dependence, and substance history use of: methamphetamine, cocaine and marijuana. Patient completed 3 day Subutex taper as ordered and is scheduled to be discharged today. As per shift production associate patient received no PRNs during shift production associate. Patient received, awake alert and oriented x4. educated regarding plan of care for the day and medication regimen and will educate regarding discharge instructions. Safety measures in place. Fall and seizure precautions observed at all times. Will continue to monitor closely. Addendum: 01/10/17 at 0750 by SARAHI ROMANO LVN disregard note above: incorrect patient.
--- NOTE | 2017-01-10 07:47 | NUR ---
BEGINNING OF SHIFT Patient endorsement report received from retail shift leader nurse, all pertinent information discussed. Patient is a 26 year old Female admitted on: 01/09/2017, with admitting Dx: ETOH dependence. Patient continues under close observation, will monitor vital signs and ciwa scores closely. As per retail shift leader patient received no PRNs during retail shift leader. Patient slept for 5 hours. Patient received, in bed with eyes closed and respirations even and unlabored. Responsive to verbal stimuli, educated regarding plan of care for the day and medication regimen. Safety measures in place. Fall and seizure precautions observed at all times. Will continue to monitor closely.
[2017-01-10 08:49] LABS: BILIRUBIN,TOTAL 0.2 mg/dL (0.2-1.0); MAGNESIUM 1.4 mg/dL (1.8-2.4); POTASSIUM 3.7 mmol/L (3.5-5.1); TOTAL PROTEIN, SERUM 6.3 g/dL (6.4-8.2)
[2017-01-10 08:52] LABS: THYROID STIMULATING HORMONE 1.123 mIU/mL (0.358-3.740)
[2017-01-10] MEDS: THIAMINE HCL 100 MG TABLET PO SCH (08:58)
[2017-01-10] MEDS: MULTIVITAMINS,THERAPEUTIC TABLET PO SCH (08:58)
[2017-01-10] MEDS: FOLIC ACID 1 MG TABLET PO SCH (08:58)
--- NOTE | 2017-01-10 08:58 | NUR ---
PRN MOTRIN Patient c/o back pain 01/17, provided with non pharmacological interventions with no relief, administered Motrin as ordered, will monitor effectiveness of medication.
[2017-01-10] MEDS ORDERED: THIAMINE HCL 200 MG/2 ML VIAL IM ONE (09:00)
[2017-01-10 09:19] LABS: BASOPHILS # (AUTO) 0.1 K/uL (0.0-8.0); BASOPHILS % (AUTO) 0.5 % (0.0-2.0); EOSINOPHILS # (AUTO) 0.1 K/uL (0.0-0.7); EOSINOPHILS % (AUTO) 1.2 % (0.0-7.0); HEMATOCRIT 34.4 % (37-47); HEMOGLOBIN 11.3 G/DL (12.0-16.0); LYMPHOCYTES # (AUTO) 4.2 K/UL (0.8-4.8); LYMPHOCYTES % (AUTO) 40.4 % (20.5-51.5); MEAN CORPUSCULAR HEMOGLOBIN 29.7 UUG (27.0-31.0); MEAN CORPUSCULAR HGB CONC 33 g/dL (32.0-37.0); MEAN CORPUSCULAR VOLUME 90.3 FL (81.0-99.0); MONOCYTES # (AUTO) 0.5 K/UL (0.1-1.30); MONOCYTES % (AUTO) 5.1 % (0.0-11.0); NEUTROPHILS # (AUTO) 5.5 K/UL (1.8-8.9); NEUTROPHILS % (AUTO) 52.8 % (38.5-71.5); PLATELET COUNT (AUTO) 284 K/UL (150-450); RED BLOOD CELL COUNT(AUTO) 3.81 MIL/UL (4.2-5.4); WHITE BLOOD COUNT (AUTO) 10.4 K/UL (4.0-11.2)
[2017-01-10] MEDS ORDERED: MAGNESIUM OXIDE 400 MG TABLET PO ONE (09:45)
[2017-01-10] MEDS ORDERED: ASPIRIN/ACETAMINOPHEN/CAFFEINE TABLET PO PRN (09:45)
--- NOTE | 2017-01-10 09:58 | NUR ---
MOTRIN REASSESSMENT Patient reports medication effective, current pain level 0/10 will continue to monitor closely.
--- NOTE | 2017-01-10 11:06 | NUR ---
PRN ZOFRAN patient noted with two episodes of vomiting and c/o nausea. Patient was administered Zofran injection as ordered, will monitor effectiveness of medication. patient was encouraged adequate PO fluid intake as tolerated. will continue to monitor.
[2017-01-10] MEDS ORDERED: LORAZEPAM 1 MG TABLET PO ONE ×2 (11:15→21:00)
[2017-01-10] MEDS ORDERED: IV NS 1000 ML 1,000 ML IV PRN (11:15)
--- NOTE | 2017-01-10 11:21 | NUR ---
ONE TIME ATIVAN Patient presented with: fine tremors, intermittent nausea, sweating, anxiety, mild agitation with ciwa score of: 14, bp: 118/72 heart rate: 88. per Dr. adan patient to received one time dose of 2 mg Ativan PO, medication administered as ordered, will monitor effectiveness of medication, will continue to monitor closely. safety measures in place.
--- NOTE | 2017-01-10 11:36 | NUR ---
MARQUIS REASSESSMENT Patient reports medication effective, no further episodes of vomiting noted, denies feeling nauseous, medication with relief, will continue to monitor,.
--- NOTE | 2017-01-10 12:05 | NUR ---
REFUSED SALINE LOCK/IV Per MD order patient to received IVF as ordered, upon insertion of saline lock patient was explained procedure with good verbal understanding, patient refused IV saline lock insertion despite explanation of risk vs benefits, per patient does not want an IV inserted. MD was notified. Patient encouraged to increase PO fluid intake as tolerated, will continue to monitor closely.
[2017-01-10] MEDS ORDERED: TRAZODONE 50 MG TABLET PO PRN (14:30)
--- NOTE | 2017-01-10 17:12 | NUR ---
ATIVAN REASSESSMENT Patient reports medication effective, decrease in ciwa score from 7 to 5. will continue to monitor.
--- NOTE | 2017-01-10 18:53 | NUR ---
PRN ATIVAN Patient presented with: fine tremors, mild nausea, barely sweating, mild anxiety and mild agitation with ciwa score of: 7, administered Ativan 1 mg Po as ordered for ciwa score. will monitor effectiveness of medication. safety measures in place. Addendum: 01/10/17 at 1855 by SARAHI ROAMNO LVN medication adminstered at: [id number]
--- NOTE | 2017-01-10 18:55 | NUR ---
UDS Patient uds positive for cocaine, per patient denies taking any cocaine.
--- NOTE | 2017-01-10 18:59 | NUR ---
END OF SHIFT Patient alert and oriented x4, vital signs were stable during shift. Patient with admitting Dx: etoh dependence, currently with no ongoing taper, continues under close observation. Patient 0900 assessment presented with: mild nausea, mild anxiety and tremors that can be felt but not seen with ciwa score of: 3; 1120 assessment patient presented with: fine tremors, intermittent nausea, sweating, anxiety and mild agitation with ciwa score of: 14; 1300 assessment patient presented with: fine tremors, mild nausea, barely sweating, mild anxiety and mild agitation with ciwa score of: 7; 1700 assessment patient presented with: fine tremors, mild nausea, barely sweating, mild anxiety and mild agitation with ciwa score of: 7. Patient encouraged to increase PO fluid intake as tolerated. During shift patient refused IVF as ordered, despite risk vs benefits. Patient was administered PRN; Motrin, Zofran, and Ativan 1mg Po as ordered. Patient was also administered a one time dose of 2 mg Ativan Po as ordered, medications well tolerated. No ASE noted. Patient encouraged to attend group therapies/sessions to learn new coping skills to prevent relapse, denies SI/HI. Patients safety measures in place. Call light kept with in reach, fall and seizure precautions observed at all times. Alll needs met and rendered. Patient endorsed to reserve officer nurse, all pertinent information discussed.
--- NOTE | 2017-01-10 20:00 | NUR ---
Start of Shift Pt is a 26 year old female admitted for ETOH dependence. Pt consumed Vodka 1/2 liter/daily for 5 days. PMH: Anxiety, NKA, fall/seizure precautions and full code. Upon assessment, pt presents with irritability, anxiety, sweaty/clammy skin, nausea with no emesis, tremors felt upon touch, reports mild chills, respiration even/unlabored, denies SOB/chest pain, bowel sounds active x4, abdomen soft. Safety measures in place, call light within reach, side rails up x2, bed locked and in low position. Will continue to monitor.
[2017-01-10] MEDS ORDERED: TRAZODONE 100 MG TABLET PO SCH (21:00)
[2017-01-11] VITALS: BP 119/62
[2017-01-11 04:00] VITALS: BP 98/64
--- NOTE | 2017-01-11 04:00 | NUR ---
Vital Signs BP 98/64, pulse 72, respirations 14, SpO2 98%, temp 98.1, no pain rated 0/10 CIWA deferred d/t pt sleeping - to assess while pt is sleeping as ordered. Safety measures in place. Will continue to monitor.
[2017-01-11 06:09] LABS: HEPATITIS B SURFACE AG Negative (Negative)
--- NOTE | 2017-01-11 07:00 | NUR ---
End of Shift Pt is a 26 year old female admitted for ETOH dependence. Pt consumed Vodka 1/2 liter/daily for 5 days. PMH: Anxiety, NKA, fall/seizure precautions and full code. During shift, pt presented with irritability, anxiety, sweaty/clammy skin, nausea with no emesis, tremors felt upon touch, reports mild chills - scheduled medications administered, CIWA 7. No PRN medications administered during shift. Pt slept for 5 hours, intake of 1090 ml PO, voids x2 and stool x0. Safety measures in place, call light within reach, side rails up x2, bed locked and in low position. Will continue to monitor.
--- NOTE | 2017-01-11 07:54 | NUR ---
START OF SHIFT Received pt this AM AOx4. Patient on PRNs only with no taper ordered. PRN Ativan and Trazodone given per metal cnc operator with effectiveness. Patient states she feels "fine, but tired." She slept 5 hours last night. Last CIWA 7. Encouraged patient to attend groups and activities. Encouraged patient to increase fluid intake to facilitate detox. Seizure and fall precautions in place. Will provide safe and supportive environment. All needs met. All safety measures in place.Will monitor closely.
[2017-01-11 08:00] VITALS: BP 91/61
[2017-01-11 08:06] LABS: CREATININE 0.8 mg/dL (0.6-1.3); MAGNESIUM 1.7 mg/dL (1.8-2.4)
[2017-01-11] MEDS: FOLIC ACID 1 MG TABLET PO SCH (08:36)
[2017-01-11] MEDS: MULTIVITAMINS,THERAPEUTIC TABLET PO SCH (08:36)
[2017-01-11] MEDS: THIAMINE HCL 100 MG TABLET PO SCH (08:36)
--- NOTE | 2017-01-11 08:37 | NUR ---
PRN MEDICATIONS 1 MG Ativan given for CIWA 9. Will reassess.
--- NOTE | 2017-01-11 08:37 | NUR ---
TB TEST REFUSED PATIENT STATES SHE WANTS CHEST XRAY
[2017-01-11] MEDS ORDERED: TUBERCULIN,PURIF.PROT.DERIV. 5 TU/0.1 ML TEST ID ONE (09:00)
[2017-01-11] MEDS ORDERED: MAGNESIUM OXIDE 400 MG TABLET PO ONE (09:15)
--- NOTE | 2017-01-11 09:20 | NUR ---
PRN REASSESSMENT CIWA 5. Patient resting in bed watching tv. Will monitor
[2017-01-11 12:00] VITALS: BP 88/50
[2017-01-11] MEDS: LORAZEPAM 1 MG TABLET PO SCH ×3 (12:21→21:36)
--- NOTE | 2017-01-11 13:54 | NUR ---
ENDORSED TO KRISTIN SEGAL
--- NOTE | 2017-01-11 13:56 | NUR ---
Endorsement Pt endorsed to me with new orders to cont. with the Ativan taper. Will cont. to monitor the pt. Addendum: 01/11/17 at 1358 by PHILIPP CARR RN Endorsed from Chiquis
[2017-01-11] MEDS: HYDROXYZINE PAMOATE 25 MG CAPSULE PO PRN (15:52)
[2017-01-11 16:00] VITALS: BP 105/70
--- NOTE | 2017-01-11 16:00 | NUR ---
PRN Medication Administration Pt is in room anxious and c/o SWANSON, V/S stable, CIWA 6; PRN Vistaril 50mg and Excedrin 1 tab given as ordered. Will reassess in 1 before dinner.
--- NOTE | 2017-01-11 17:00 | NUR ---
Reassessment Pt is getting ready to go down for dinner and denies SWANSON; Excedrin is effective. Will cont. to monitor the pt.
[2017-01-11] MEDS ORDERED: METHOCARBAMOL 500 MG TABLET PO PRN (18:00)
--- NOTE | 2017-01-11 19:16 | NUR ---
End of Shift Endorsement from the day nurse at 1400pm: pt is a 26 y/o female here for Etoh r/t Vodka 0.5L per day; pt is on a modified Ativan taper. Pt is a full code, regular diet, NKA, fall and seizure precautions carried out as ordered. HHx: Anxiety and multiple replaces with [facility]. V/S stable and skin is intact. Pt has been stable during my monitoring.PRN Medications Vistaril 50mg and Excedrin 1 tab since pt c/o SWANSON. New orders for Robaxin PRN, none given during my shift. Last CIWA 6.
[2017-01-11 20:00] VITALS: BP 113/82
--- NOTE | 2017-01-11 20:00 | NUR ---
Start of Shift Pt is a 26 year old female admitted for ETOH dependence. Pt consumed Vodka 1/2 liter/daily for 5 days. PMH: Anxiety, NKA, fall/seizure precautions and full code. Upon assessment, pt presents with , anxiety, is noted to be irritable/agitation, sweaty/clammy skin, tremors felt upon touch, reports mild chills, respiration even/unlabored, denies SOB/chest pain, bowel sounds active x4, abdomen soft. Safety measures in place, call light within reach, side rails up x2, bed locked and in low position. Will continue to monitor.
[2017-01-11] MEDS ORDERED: TRAZODONE 100 MG TABLET ONE (21:20)
[2017-01-11] MEDS: TRAZODONE 100 MG TABLET PO SCH (21:36)
[2017-01-12] VITALS: BP 89/68
[2017-01-12 04:00] VITALS: BP 92/57
--- NOTE | 2017-01-12 04:00 | NUR ---
Vital Signs BP 92/57, pulse 80, respirations 16, SpO2 97%, temp 98, no pain rated 0/10 CIWA deferred d/t pt sleeping - to assess while pt is sleeping as ordered. Safety measures in place. Will continue to monitor.
--- NOTE | 2017-01-12 07:00 | NUR ---
End of Shift Pt is a 26 year old female admitted for ETOH dependence. Pt consumed Vodka 1/2 liter/daily for 5 days. PMH: Anxiety, NKA, fall/seizure precautions and full code. During shift, pt presented with , anxiety, was noted to be irritable/agitated, sweaty/clammy skin, tremors felt upon touch, reported mild chills - scheduled taper medications administered, CIWA 8 decreased to CIWA 7. No PRN medications administered during shift. Pt slept for 5 hours, intake of 1091 ml PO, voids x1 and stool x1. Safety measures in place, call light within reach, side rails up x2, bed locked and in low position. Endorsed to day shift.
--- NOTE | 2017-01-12 07:54 | NUR ---
Start of shift note; Received report from night nurse. Patient is a 26 year old female admitted on 01/09/17 for ETOH withdrawals. Patient was placed on a modified Ativan taper, no adverse reactions noted. NKA, Patient is on a full code status, regular diet. Patient reported history of anxiety.Patient's last CIWA score is 7 at 2100. All safety measures secured. Will continue to monitor patient.
[2017-01-12 08:00] VITALS: BP 98/62
[2017-01-12] MEDS ORDERED: LORAZEPAM 1 MG TABLET PO SCH (09:00)
[2017-01-12] MEDS: MULTIVITAMINS,THERAPEUTIC TABLET PO SCH (09:16)
[2017-01-12] MEDS: FOLIC ACID 1 MG TABLET PO SCH (09:16)
[2017-01-12] MEDS: THIAMINE HCL 100 MG TABLET PO SCH (09:16)
[2017-01-12] MEDS ORDERED: CLON0.1T14 PO (11:25)
[2017-01-12] MEDS ORDERED: HYDR-3895 PO (11:25)
--- NOTE | 2017-01-12 11:30 | NUR ---
Endorsement report; Patient is AOX4. Detailed report given to covering nurse. All safety measures secured. Met all needs.
--- NOTE | 2017-01-12 11:40 | NUR ---
Endorsement Handoff Veneer Grader received report from hand-off nurse. Pt is A/O x4 and has no complaints at this time. Will continue to monitor, support and encourage according to plan of care.
[2017-01-12 12:25] VITALS: BP 93/58
[2017-01-12 16:30] VITALS: BP 109/46
[2017-01-12 17:51] LABS: *AMPHETAMINE, URINE NEGATIVE (NEGATIVE); *BARBITURATE, URINE NEGATIVE (NEGATIVE); *CANNABINOID, URINE NEGATIVE (NEGATIVE); *COCCAINE, URINE NEGATIVE (NEGATIVE); *OPIATE, URINE NEGATIVE (NEGATIVE); *PHENCYCLIDINE SCREEN,URINE NEGATIVE (NEGATIVE)
--- NOTE | 2017-01-12 19:14 | NUR ---
End of Shift Report provided to NOC shift. Pt is a 26 year old female admitted on 01/09/17 for ETOH detoxification. Pt has NKA, full code and on a regular diet. PMH of anxiety. Was admitted after relapsing 5 days ago. Has completed her Ativan taper and is due to discharge tomorrow. Pts last CIWA of 1 recorded at 1600. Pt is calm and cooperative and A/O x4. No PRN medication administered on this shift. Bed in low position with wheels locked and side rails up x2, call light within reach. All safety measures in place. Will continue to monitor, support and encourage according to plan of care.
[2017-01-12 20:00] VITALS: BP 110/70
--- NOTE | 2017-01-12 20:00 | NUR ---
Start of Shift Pt is a 26 year old female admitted for ETOH dependence, completed modified Ativan taper. Pt consumed Vodka 1/2 liter/daily for 5 days. PMH: Anxiety, NKA, fall/seizure precautions and full code. Upon assessment, pt presents with anxiety and is noted to be irritable, skin flushed, respirations even/unlabored, denies SOB/chest pain, bowel sounds active x4, abdomen soft. Pt is scheduled for discharge tomorrow. Safety measures in place, call light within reach, side rails up x2, bed locked and in low position. Will continue to monitor.
[2017-01-12] MEDS: TRAZODONE 100 MG TABLET PO SCH (20:23)
[2017-01-12] MEDS: HYDROXYZINE PAMOATE 25 MG CAPSULE PO PRN (22:53)
--- NOTE | 2017-01-12 22:53 | NUR ---
PRN Administration 2253 Pt reports feeling anxious, requests relief. Vistaril 50mg PRN administered. Safety measures in place. Will continue to monitor.
--- NOTE | 2017-01-12 23:53 | NUR ---
PRN Reassessment Upon reassessment, pt is sleeping, eyes closed, respirations even/unlabored, no s/s of acute distress noted. Safety measures in place, will continue to monitor.
[2017-01-13] VITALS: BP 105/68
--- NOTE | 2017-01-13 | NUR ---
Vital Signs BP 105/68, pulse 80, respirations 14, SpO2 97%, temp 98.5, no pain rated 0/10 CIWA deferred d/t pt sleeping - to assess while pt is sleeping as ordered. Safety measures in place. Will continue to monitor.
[2017-01-13 04:00] VITALS: BP 102/67
[2017-01-13] MEDS: HYDROXYZINE PAMOATE 25 MG CAPSULE PO PRN (04:56)
--- NOTE | 2017-01-13 04:56 | NUR ---
PRN Administration Pt reports feelings anxious with irritation noted. Vistaril 50mg PRN administered. Safety measures in place. Will continue to monitor.
--- NOTE | 2017-01-13 05:56 | NUR ---
PRN Reassessment Upon reassessment, pt is resting, eyes closed, no s/s of acute distress noted, respirations even/unlabored. Safety measures in place. Will continue to monitor.
--- NOTE | 2017-01-13 07:00 | NUR ---
End of Shift Pt is a 26 year old female admitted for ETOH dependence, completed modified Ativan taper. Pt consumed Vodka 1/2 liter/daily for 5 days. PMH: Anxiety, NKA, fall/seizure precautions and full code. During shift, pt presented with anxiety and is noted to be irritable, skin flushed - scheduled medication administered along with Vistaril 50mg PRN x2, effective, CIWA 1. Pt is scheduled for discharge today. Pt slept for 7 hours, intake of 1710 ml PO, voids x3and stool x1. Safety measures in place, call light within reach, side rails up x2, bed locked and in low position. Endorsed to day shift nurse.
--- NOTE | 2017-01-13 07:30 | NUR ---
START OF SHIFT Received pt this Am AOx4.Patient scheduled for discharge this shift. Patient states readiness for discharge. She completed taper.Last CIWA 1. PRN Vistaril x2 given per shift mechanic. She slept 7 hours. Vital signs stable. Will monitor
[2017-01-13 08:00] VITALS: BP 96/60
[2017-01-13] MEDS: MULTIVITAMINS,THERAPEUTIC TABLET PO SCH (08:20)
[2017-01-13] MEDS: FOLIC ACID 1 MG TABLET PO SCH (08:20)
[2017-01-13] MEDS: THIAMINE HCL 100 MG TABLET PO SCH (08:21)
--- NOTE | 2017-01-13 10:04 | NUR ---
DISCHARGE NOTE Patient is in stable condition. Vitals WNL. patient is Aox4. skin intact. patient denies S/I or H/I. All discharge paperwork completed, dated, and signed. patient educated about discharge instructions, what to do after discarhge, and when to contact MD. patient verbalized understanding. Last CIWA 1. Patient was discharged from [facility] on 01/13/17 at 0954. Patient left the building with all belongings and rx. Pt did not bring any medications with her to the unit. has been notified of patient discharge.
== END 2017-01-13 09:54 | disposition home or self-care (01) | DRG 895 ==
LOC: SRC 23:56
PROVIDERS: ADMIT Internal Medicine; ATTEND Internal Medicine
PROC: HZ2ZZZZ Detoxification Services for Substance Abuse Treatment (ICD-10-PCS; principal; 2017-01-09)
PROC: HZ31ZZZ Individual Counseling for Substance Abuse Treatment, Behavioral (ICD-10-PCS; 2017-01-12)
DX: F10.230 Alcohol dependence with withdrawal, uncomplicated (principal); Y90.9 Presence of alcohol in blood, level not specified; F14.10 Cocaine abuse, uncomplicated; F43.10 Post-traumatic stress disorder, unspecified; Z81.1 Family history of alcohol abuse and dependence; F39 Unspecified mood [affective] disorder; F17.210 Nicotine dependence, cigarettes, uncomplicated; G44.209 Tension-type headache, unspecified, not intractable; D64.9 Anemia, unspecified; E83.42 Hypomagnesemia; E86.0 Dehydration
CPT/HCPCS: 36415; 71010; 80307; 80353; 83690; 83735; 84443; 84703; 85025; 86592; 86705; 86803; 87340; 87806; A4663; G0480; J2405; J3411; Q0163

== ENCOUNTER 2024-02-23 05:07 | Emergency (ER) | payer MEDICAID, OTHER ==
[~2024-02-23] VITALS: Ht 165.1 cm; Wt 59.9 kg
[~2024-02-23 05:07] MED LIST changes: -GABA-534 PO; -TRAZ-144 PO; -TRAZ-147 PO; +TRAZ-252 PO
--- NOTE | 2024-02-23 05:15 | NUR ---
From [address] [place] [address] came with no papers
--- NOTE | 2024-02-23 05:32 | NUR ---
Patient [facility], she was just broughtin at the [facility] and staff reported that she stop talking and send her here.
--- NOTE | 2024-02-23 05:33 | NUR ---
Dr. Becker at bedside for MSE.
[2024-02-23 05:59] LABS: BASOPHILS # (AUTO) 0.1 K/UL (0.0-0.2); BASOPHILS % (AUTO) 0.6 % (0.0-2.0); EOSINOPHILS % (AUTO) 0.3 % (0.0-7.0); HEMATOCRIT 43.7 % (31.2-41.9); HEMOGLOBIN 14.7 g/dL (10.9-14.3); LYMPHOCYTES # (AUTO) 2.9 K/uL (0.8-4.8); LYMPHOCYTES % (AUTO) 29.6 % (20.5-51.5); MEAN CORPUSCULAR HEMOGLOBIN 31.5 uug (24.7-32.8); MEAN CORPUSCULAR HGB CONC 34 g/dL (32.3-35.6); MEAN CORPUSCULAR VOLUME 93.3 fL (75.5-95.3); MONOCYTES # (AUTO) 0.7 K/uL (0.1-1.30); MONOCYTES % (AUTO) 7.2 % (0.0-11.0); NEUTROPHILS # (AUTO) 6.1 K/uL (1.8-8.9); NEUTROPHILS % (AUTO) 62.3 % (38.5-71.5); PLATELET COUNT (AUTO) 280 K/uL (179-408); RED BLOOD CELL COUNT(AUTO) 4.68 MIL/uL (3.63-4.92); RED CELL DISTRIBUTION WIDTH 16.7 % (12.3-17.7); WHITE BLOOD COUNT (AUTO) 9.8 K/uL (3.8-11.8)
[2024-02-23 06:10] LABS: CALCIUM 8.6 mg/dL (8.5-10.1); CARBON DIOXIDE 28 mmol/L (21-32); CHLORIDE 100 mmol/L (98-107); CREATININE 0.7 mg/dL (0.6-1.3); GLUCOSE 87 mg/dL (74-106); POTASSIUM 3.4 mmol/L (3.5-5.1); SODIUM SERUM 142 mmol/L (136-145); UREA NITROGEN, BLOOD 15 mg/dL (7-18)
[2024-02-23 06:14] LABS: DIFFERENTIAL COMMENT 1
[2024-02-23 06:16] LABS: *BILIRUBIN,URIN NEGATIVE (NEGATIVE); *CLARITY,URINE CLEAR (CLEAR); *COLOR,URINE YELLOW (YELLOW); *KETONES,URINE 1+ (NEGATIVE); *PROTEIN,URINE TRACE (NEGATIVE); *UROBILINOGEN,URINE 0.2 E.U./dl (NORMAL); LEUKOCYTE ESTERASE ,URINE NEGATIVE (NEGATIVE); NITRITE, URINE NEGATIVE (NEGATIVE); UGLUCOSE NEGATIVE (NEGATIVE)
[2024-02-23 06:17] LABS: *BLOOD, URINE TRACE (NEGATIVE)
[2024-02-23 06:23] LABS: ALANINE AMINOTRANSFERASE 19 U/L (14-59); ALBUMIN 4.2 g/dL (3.4-5.0); ALKALINE PHOSPHATASE 82 U/L (50-136); ASPARTATE AMINOTRANSFERASE 29 U/L (15-37); BILIRUBIN,DIRECT 0.2 mg/dL (0.0-0.2); BILIRUBIN,TOTAL 0.5 mg/dL (0.2-1.0); TOTAL PROTEIN, SERUM 8.3 g/dL (6.4-8.2)
[2024-02-23 06:28] LABS: ETHANOL 491 MG/DL (0-10)
--- NOTE | 2024-02-23 06:31 | NUR ---
Lab reported Ethinol level 491. Dr. Becker made aware.
[2024-02-23 06:36] LABS: ACETAMINOPHEN < 2.0 ug/mL (10-30)
[2024-02-23 06:37] LABS: BACTERIA,URINE FEW /HPF (NONE SEEN); SQUAMOUS EPITHELIAL CELL,UR MODERATE /HPF (NONE SEEN)
[2024-02-23 06:38] LABS: URINE AMORPHOUS URATE FEW /HPF
[2024-02-23 06:39] LABS: *AMPHETAMINE, URINE NEGATIVE (NEGATIVE); *BARBITURATE, URINE NEGATIVE (NEGATIVE); *BENZODIAZEPINE, URINE NEGATIVE (NEGATIVE); *CANNABINOID, URINE NEGATIVE (NEGATIVE); *COCCAINE, URINE NEGATIVE (NEGATIVE); *OPIATE, URINE NEGATIVE (NEGATIVE); *PHENCYCLIDINE SCREEN,URINE NEGATIVE (NEGATIVE); FENTANYL, URINE NEGATIVE (NEGATIVE)
[2024-02-23] MEDS ORDERED: LORAZEPAM 2 MG/1 ML VIAL ONE (06:40)
[2024-02-23] MEDS: LORAZEPAM 2 MG/1 ML VIAL IV ONE (06:52)
[2024-02-23] MEDS: IV NORMAL SALINE 1000 ML BAG IV ONE (06:52)
[2024-02-23] MEDS ORDERED: THIAMINE HCL 200 MG/2 ML VIAL ONE (06:54)
[2024-02-23] MEDS: THIAMINE HCL 200 MG/2 ML VIAL IV ONE (06:56)
--- NOTE | 2024-02-23 06:59 | NUR ---
SBAR report given to day shift RN Aimei.
--- NOTE | 2024-02-23 07:08 | NUR ---
Spoke with Dwayne Frazier at [phone] stated that the patient was discharge from other hospital, after 10 mins they called RA since patient is not ready for admission. Patient was altered. Call Dwayne when she is ready for discharge. [facility] Address: [address], [place] [address]
[2024-02-23] MEDS ORDERED: MAGNESIUM SULFATE/D5W 100 ML ONE (07:10)
[2024-02-23] MEDS: MAGNESIUM SULFATE/D5W 100 ML IV STA (07:17)
--- NOTE | 2024-02-23 09:43 | NUR ---
pt resting, on monitor. arousable.
[2024-02-23] MEDS: IV D5/ 0.9% NACL 1,000 ML IV ONE (10:12)
--- NOTE | 2024-02-23 10:30 | NUR ---
SINDHU NUNES [facility] AT [facility]. ASKED TO CALL HIM WHEN THE PT IS D/DARSHAN. [phone].
--- NOTE | 2024-02-23 11:30 | NUR ---
PT AWAKE, SHE IS AXOX4, ASKING FOR FOOD. SANDWICH PROVIDED.
[2024-02-23] MEDS ORDERED: ONDANSETRON 4 MG/2 ML VIAL ONE (11:47)
[2024-02-23] MEDS: ONDANSETRON 4 MG/2 ML VIAL IV ONE (12:00)
--- NOTE | 2024-02-23 12:11 | NUR ---
CALLED SINDHU KRUGER PER PT REQUEST TO COME AND PICK THE PT UP.
--- NOTE | 2024-02-23 12:30 | NUR ---
PT HAD LUNCH TRAY WITH [employer].
--- NOTE | 2024-02-23 13:00 | NUR ---
IV END TIME NOTE: D5NS INFUSION COMPLETED AT 1310
--- NOTE | 2024-02-23 13:10 | NUR ---
Patient discharged to home in stable condition. Written and verbal after care instructions given. Patient verbalizes understanding of instructions. Stressed follow up or return to ER for worsening s/s. PT WALKS IN STEADY GAIT. PT IS AXOX4. PT ACCOMPANIED BY THI NUNES.
[2024-02-23 13:41] VITALS: BP 109/71; TEMP 97.9; O2SAT 98
== END 2024-02-23 13:10 | disposition home or self-care (01) ==
LOC: ER 05:16
DX: F10.129 Alcohol abuse with intoxication, unspecified (principal); R10.2 Pelvic and perineal pain; Z79.899 Other long term (current) drug therapy; Z79.891 Long term (current) use of opiate analgesic; Z79.52 Long term (current) use of systemic steroids; Z20.822 Contact with and (suspected) exposure to COVID-19; Y90.0 Blood alcohol level of less than 20 mg/100 ml
CPT/HCPCS: 80076; 80048; 81001; 85025; 87426; 84484; 84702; 36415; 93005; 70450; 99285; 96361; 96365; 96375; 87086; 80299; 80320 ×3; 80307; J2060; J3475; J2405; J3411; J7042; J7040; A4606; A4663; C1758; G0480